=== PATIENT | male | born 1955 ===

== ENCOUNTER 2024-12-06 17:45 | Inpatient (IN) | payer OTHER ==
[~2024-12-06] VITALS: Ht 170.2 cm; Wt 70.1 kg
[2024-12-06 18:05] LABS: DIFFERENTIAL COMMENT 1; EOSINOPHILS # (AUTO) 0.5 K/uL (0.0-0.7); EOSINOPHILS % (AUTO) 10.9 % (0.0-7.0); HEMATOCRIT 32.6 % (36.7-47.1); HEMOGLOBIN 10.9 g/dL (12.5-16.3); LYMPHOCYTES # (AUTO) 1.2 K/uL (0.8-4.8); LYMPHOCYTES % (AUTO) 27.1 % (20.5-51.5); MEAN CORPUSCULAR HEMOGLOBIN 30.1 uug (23.8-33.4); MEAN CORPUSCULAR HGB CONC 34 g/dL (32.5-36.3); MEAN CORPUSCULAR VOLUME 89.8 fL (73.0-96.2); MONOCYTES # (AUTO) 0.4 K/uL (0.1-1.30); MONOCYTES % (AUTO) 8.5 % (0.0-11.0); NEUTROPHILS # (AUTO) 2.4 K/uL (1.8-8.9); NEUTROPHILS % (AUTO) 52.5 % (38.5-71.5); PLATELET COUNT (AUTO) 213 K/uL (152-348); RED BLOOD CELL COUNT(AUTO) 3.63 MIL/uL (4.06-5.63); RED CELL DISTRIBUTION WIDTH 14.3 % (12.1-16.2); WHITE BLOOD COUNT (AUTO) 4.6 K/uL (3.6-10.2)
[2024-12-06] MEDS ORDERED: ASPI81TA31 PO (18:10)
[2024-12-06] MEDS ORDERED: PANT40TA49 PO (18:10)
[2024-12-06] MEDS ORDERED: RANO500T3 PO (18:10)
[2024-12-06] MEDS ORDERED: ISOS30TA9 PO (18:10)
[2024-12-06] MEDS ORDERED: ATOR40TA PO (18:10)
[2024-12-06] MEDS ORDERED: SACU1TAB PO (18:10)
[2024-12-06] MEDS ORDERED: CARV3.122 PO (18:10)
[2024-12-06] MEDS ORDERED: FURO-152 PO (18:10)
[2024-12-06 18:12] LABS: CALCIUM 9.1 mg/dL (8.5-10.1); CARBON DIOXIDE 26 mmol/L (21-32); CHLORIDE 106 mmol/L (98-107); CREATININE 1.5 mg/dL (0.6-1.3); GLUCOSE 113 mg/dL (74-106); POTASSIUM 4.2 mmol/L (3.5-5.1); SODIUM SERUM 140 mmol/L (136-145); UREA NITROGEN, BLOOD 18 mg/dL (7-18)
[2024-12-06] MEDS ORDERED: ONDANSETRON 4 MG/2 ML VIAL ONE (18:18)
[2024-12-06] MEDS ORDERED: MORPHINE SULFATE 4 MG/1 ML DISP.SYRIN ONE ×2 (18:19→20:20)
[2024-12-06] MEDS: ONDANSETRON 4 MG/2 ML VIAL IV ONE (18:19)
[2024-12-06] MEDS: MORPHINE SULFATE 4 MG/1 ML DISP.SYRIN IV ONE ×2 (18:19→20:28)
[2024-12-06 18:25] LABS: ALANINE AMINOTRANSFERASE 12 U/L (16-63); ALBUMIN 3.1 g/dL (3.4-5.0); ALKALINE PHOSPHATASE 98 U/L (50-136); ASPARTATE AMINOTRANSFERASE 15 U/L (15-37); BILIRUBIN,DIRECT 0.1 mg/dL (0.0-0.2); BILIRUBIN,TOTAL 0.4 mg/dL (0.2-1.0); NT-PRO BNP 590 pg/mL (0-125); TOTAL PROTEIN, SERUM 7.3 g/dL (6.4-8.2)
[2024-12-06] MEDS ORDERED: diphenhydrAMINE 50 MG/1 ML VIAL ONE (18:28)
[2024-12-06] MEDS: diphenhydrAMINE 50 MG/1 ML VIAL IV ONE (18:28)
[2024-12-06 23:15] VITALS: BP 95/66; TEMP 97.6; O2SAT 100
[2024-12-06] MEDS ORDERED: ZOLPIDEM 5 MG TABLET PO PRN (23:30)
[2024-12-07] VITALS (7 sets, daily range): BP systolic 90–168; BP diastolic 47–98; TEMP 97.5–98.3; O2SAT 97–100
[2024-12-07] MEDS: MORPHINE SULFATE 2 MG/1 ML DISP.SYRIN IV ONE (00:39)
[2024-12-07] MEDS: LORAZEPAM 2 MG/1 ML VIAL IV PRN (00:55)
[2024-12-07] MEDS ORDERED: ONDANSETRON 4 MG/2 ML VIAL IV PRN (01:00)
[2024-12-07] MEDS: RANOLAZINE 500 MG TAB.ER.12H PO ONE (01:30)
[2024-12-07] MEDS ORDERED: CEFAZOLIN 1 G VIAL ONE (03:52)
[2024-12-07 07:04] LABS: BASOPHILS % (AUTO) 0.9 % (0.0-2.0); EOSINOPHILS # (AUTO) 0.5 K/uL (0.0-0.7); EOSINOPHILS % (AUTO) 10.2 % (0.0-7.0); HEMATOCRIT 32.9 % (36.7-47.1); LYMPHOCYTES # (AUTO) 1.4 K/uL (0.8-4.8); LYMPHOCYTES % (AUTO) 25.7 % (20.5-51.5); MEAN CORPUSCULAR HEMOGLOBIN 29.4 uug (23.8-33.4); MEAN CORPUSCULAR HGB CONC 34 g/dL (32.5-36.3); MONOCYTES # (AUTO) 0.4 K/uL (0.1-1.30); MONOCYTES % (AUTO) 8.2 % (0.0-11.0); NEUTROPHILS # (AUTO) 2.9 K/uL (1.8-8.9); PLATELET COUNT (AUTO) 199 K/uL (152-348); RED BLOOD CELL COUNT(AUTO) 3.74 MIL/uL (4.06-5.63); RED CELL DISTRIBUTION WIDTH 14.2 % (12.1-16.2); WHITE BLOOD COUNT (AUTO) 5.3 K/uL (3.6-10.2)
[2024-12-07 07:16] LABS: DIFFERENTIAL COMMENT 1
[2024-12-07 07:23] LABS: THYROID STIMULATING HORMONE 3.49 mIU/mL (0.358-3.740)
[2024-12-07 07:29] LABS: ALBUMIN 2.9 g/dL (3.4-5.0); BILIRUBIN,TOTAL 0.4 mg/dL (0.2-1.0); CALCIUM 8.8 mg/dL (8.5-10.1); CREATININE 1.4 mg/dL (0.6-1.3); MAGNESIUM 1.5 mg/dL (1.8-2.4); PHOSPHOROUS 4.2 mg/dL (2.5-4.9); POTASSIUM 4.1 mmol/L (3.5-5.1); TOTAL PROTEIN, SERUM 6.9 g/dL (6.4-8.2)
[2024-12-07] MEDS ORDERED: PANTOPRAZOLE SODIUM 40 MG TABLET.DR PO SCH (09:00)
[2024-12-07] MEDS ORDERED: ISOSORBIDE DINITRATE 10 MG TABLET PO SCH ×2 (09:00)
[2024-12-07] MEDS: FUROSEMIDE 20 MG TABLET PO SCH (09:00)
[2024-12-07] MEDS: CLOPIDOGREL 75 MG TABLET PO SCH (09:32)
[2024-12-07] MEDS: ISOSORBIDE MONONITRATE 60 MG TAB.SR.24H PO SCH (09:33)
[2024-12-07] MEDS: RANOLAZINE 500 MG TAB.ER.12H PO SCH (09:33)
[2024-12-07] MEDS: CARVEDILOL 3.125 MG TABLET PO SCH (09:33)
[2024-12-07] MEDS: SACUBITRIL/VALSARTAN 24 MG-26 TABLET PO SCH (09:47)
[2024-12-07] MEDS ORDERED: IV NORMAL SALINE 250 ML IV ONE (11:45)
[2024-12-07] MEDS: IV NORMAL SALINE 250 ML IV ONE ×2 (12:43→22:54)
[2024-12-07] MEDS: MAGNESIUM OXIDE 400 MG TABLET PO ONE (12:43)
[2024-12-07] MEDS: ASPIRIN 81 MG TAB.CHEW PO SCH (18:13)
[2024-12-07] MEDS: ATORVASTATIN 40 MG TABLET PO SCH (20:14)
[2024-12-07] MEDS: DOCUSATE SODIUM 100 MG CAPSULE PO SCH (20:17)
[2024-12-07] MEDS: IV LACTATED RINGERS SOLUTION 1,000 ML IV SCH (23:51)
[2024-12-08] VITALS (8 sets, daily range): BP systolic 80–124; BP diastolic 56–77; TEMP 97.2–98.4; O2SAT 95–99
[2024-12-08] MEDS: PANTOPRAZOLE SODIUM 40 MG TABLET.DR PO SCH (06:26)
[2024-12-08 07:13] LABS: EOSINOPHILS # (AUTO) 0.5 K/uL (0.0-0.7); EOSINOPHILS % (AUTO) 9.9 % (0.0-7.0); HEMATOCRIT 34.6 % (36.7-47.1); HEMOGLOBIN 11.7 g/dL (12.5-16.3); LYMPHOCYTES % (AUTO) 20.4 % (20.5-51.5); MEAN CORPUSCULAR HEMOGLOBIN 29.8 uug (23.8-33.4); MEAN CORPUSCULAR HGB CONC 34 g/dL (32.5-36.3); MEAN CORPUSCULAR VOLUME 88.5 fL (73.0-96.2); MONOCYTES # (AUTO) 1.2 K/uL (0.1-1.30); MONOCYTES % (AUTO) 23.9 % (0.0-11.0); NEUTROPHILS # (AUTO) 2.2 K/uL (1.8-8.9); NEUTROPHILS % (AUTO) 45.8 % (38.5-71.5); PLATELET COUNT (AUTO) 206 K/uL (152-348); RED BLOOD CELL COUNT(AUTO) 3.91 MIL/uL (4.06-5.63); RED CELL DISTRIBUTION WIDTH 14.1 % (12.1-16.2); WHITE BLOOD COUNT (AUTO) 4.9 K/uL (3.6-10.2)
[2024-12-08 07:41] LABS: ALBUMIN 3.1 g/dL (3.4-5.0); BILIRUBIN,DIRECT 0.1 mg/dL (0.0-0.2); BILIRUBIN,TOTAL 0.5 mg/dL (0.2-1.0); CALCIUM 9.4 mg/dL (8.5-10.1); CREATININE 1.4 mg/dL (0.6-1.3); MAGNESIUM 1.7 mg/dL (1.8-2.4); PHOSPHOROUS 3.9 mg/dL (2.5-4.9); POTASSIUM 4.5 mmol/L (3.5-5.1); TOTAL PROTEIN, SERUM 7.3 g/dL (6.4-8.2)
[2024-12-08 07:47] LABS: DIFFERENTIAL COMMENT 1
[2024-12-08] MEDS: RANOLAZINE 500 MG TAB.ER.12H PO SCH (08:59)
[2024-12-08] MEDS: MAGNESIUM OXIDE 400 MG TABLET PO ONE (10:51)
[2024-12-08 11:34] LABS: EOSINOPHILS % (MANUAL) 12 % (0-8); LYMPHOCYTES % (MANUAL) 33 % (20-40); MONOCYTES % (MANUAL) 10 % (2-10); NEUTROPHILS % (MANUAL) 45 % (42-75); PLATELET ESTIMATE ADEQUATE
[2024-12-08] MEDS: IV NORMAL SALINE 250 ML IV ONE (19:15)
[2024-12-09 04:36] VITALS: BP 102/65; TEMP 97.6; O2SAT 99
[2024-12-09 07:02] LABS: CALCIUM 9.4 mg/dL (8.5-10.1); CREATININE 1.6 mg/dL (0.6-1.3); MAGNESIUM 1.8 mg/dL (1.8-2.4); POTASSIUM 4.1 mmol/L (3.5-5.1)
[2024-12-09 08:00] VITALS: BP 90/61; TEMP 98.3; O2SAT 100
[2024-12-09] MEDS: IV NORMAL SALINE 500 ML BAG IV ONE (08:22)
[2024-12-09] MEDS ORDERED: ISOSORBIDE MONONITRATE 60 MG TAB.SR.24H PO SCH (09:00)
[2024-12-09] MEDS: ISOSORBIDE MONONITRATE 30 MG TAB.SR.24H PO SCH (09:00)
[2024-12-09 12:03] VITALS: BP 90/63; TEMP 98.4; O2SAT 99
[2024-12-09 12:07] LABS: PTH, INTACT 13 pg/mL (15-65)
[2024-12-09 15:08] VITALS: BP 108/73; TEMP 98.2; O2SAT 100
[2024-12-09] MEDS: NITROGLYCERIN 0.4 MG/TAB BOTTLE SL PRN (15:08)
[2024-12-09 23:32] VITALS: O2SAT 100
[2024-12-10 04:39] VITALS: BP 110/74; TEMP 97.9; O2SAT 100
[2024-12-10 07:08] LABS: A/G RATIO 0.9 (0.7-1.7); ALBUMIN 3.1 g/dL (2.9-4.4); ALPHA-1-GLOBULIN 0.2 g/dL (0.0-0.4); ALPHA-2-GLOBULIN 0.9 g/dL (0.4-1.0); BETA GLOBULIN 1.1 g/dL (0.7-1.3); GAMMA GLOBULIN 1.3 g/dL (0.4-1.8); GLOBULIN, TOTAL 3.6 g/dL (2.2-3.9); M-SPIKE Not Observed g/dL (Not Observed); PROTEIN, TOTAL 6.7 g/dL (6.0-8.5)
[2024-12-10 07:23] LABS: BASOPHILS # (AUTO) 0.1 K/UL (0.0-0.2); BASOPHILS % (AUTO) 1.2 % (0.0-2.0); EOSINOPHILS # (AUTO) 0.5 K/uL (0.0-0.7); EOSINOPHILS % (AUTO) 9.2 % (0.0-7.0); HEMATOCRIT 36.2 % (36.7-47.1); HEMOGLOBIN 12.3 g/dL (12.5-16.3); LYMPHOCYTES # (AUTO) 1.2 K/uL (0.8-4.8); LYMPHOCYTES % (AUTO) 21.5 % (20.5-51.5); MEAN CORPUSCULAR HEMOGLOBIN 29.7 uug (23.8-33.4); MEAN CORPUSCULAR HGB CONC 34 g/dL (32.5-36.3); MEAN CORPUSCULAR VOLUME 87.2 fL (73.0-96.2); MONOCYTES # (AUTO) 0.5 K/uL (0.1-1.30); MONOCYTES % (AUTO) 8.5 % (0.0-11.0); NEUTROPHILS # (AUTO) 3.4 K/uL (1.8-8.9); NEUTROPHILS % (AUTO) 59.6 % (38.5-71.5); PLATELET COUNT (AUTO) 211 K/uL (152-348); RED BLOOD CELL COUNT(AUTO) 4.15 MIL/uL (4.06-5.63); RED CELL DISTRIBUTION WIDTH 14.6 % (12.1-16.2); WHITE BLOOD COUNT (AUTO) 5.7 K/uL (3.6-10.2)
[2024-12-10 07:37] LABS: DIFFERENTIAL COMMENT 1
[2024-12-10 07:39] VITALS: BP 112/75; TEMP 97.9; O2SAT 100
[2024-12-10 07:55] LABS: CALCIUM 9.1 mg/dL (8.5-10.1); CREATININE 1.4 mg/dL (0.6-1.3); MAGNESIUM 1.8 mg/dL (1.8-2.4); POTASSIUM 4.4 mmol/L (3.5-5.1)
[2024-12-10 09:20] VITALS: O2SAT 100
[2024-12-10 10:56] VITALS: BP 105/74; TEMP 97.6; O2SAT 100
[2024-12-10 16:32] VITALS: BP 101/78; TEMP 98; O2SAT 99
[2024-12-10 20:40] VITALS: BP 105/75; TEMP 98.5; O2SAT 100
[2024-12-11] VITALS (8 sets, daily range): BP systolic 89–137; BP diastolic 61–82; TEMP 97.8–99.5; O2SAT 97–99
[2024-12-11 07:06] LABS: BASOPHILS # (AUTO) 0.1 K/UL (0.0-0.2); BASOPHILS % (AUTO) 1.3 % (0.0-2.0); EOSINOPHILS # (AUTO) 0.6 K/uL (0.0-0.7); EOSINOPHILS % (AUTO) 10.6 % (0.0-7.0); HEMATOCRIT 35.8 % (36.7-47.1); HEMOGLOBIN 12.2 g/dL (12.5-16.3); LYMPHOCYTES # (AUTO) 1.4 K/uL (0.8-4.8); LYMPHOCYTES % (AUTO) 25.5 % (20.5-51.5); MEAN CORPUSCULAR HGB CONC 34 g/dL (32.5-36.3); MEAN CORPUSCULAR VOLUME 87.9 fL (73.0-96.2); MONOCYTES # (AUTO) 0.5 K/uL (0.1-1.30); MONOCYTES % (AUTO) 8.9 % (0.0-11.0); NEUTROPHILS % (AUTO) 53.7 % (38.5-71.5); PLATELET COUNT (AUTO) 237 K/uL (152-348); RED BLOOD CELL COUNT(AUTO) 4.07 MIL/uL (4.06-5.63); RED CELL DISTRIBUTION WIDTH 14.1 % (12.1-16.2); WHITE BLOOD COUNT (AUTO) 5.6 K/uL (3.6-10.2)
[2024-12-11 07:25] LABS: DIFFERENTIAL COMMENT 1
[2024-12-11 07:30] LABS: CALCIUM 9.5 mg/dL (8.5-10.1); CREATININE 1.5 mg/dL (0.6-1.3); POTASSIUM 4.3 mmol/L (3.5-5.1)
[2024-12-11] MEDS: HYDROCODONE/APAP 5-325MG TABLET PO PRN (09:56)
[2024-12-11] MEDS: ACETAMINOPHEN 325 MG TABLET PO PRN (23:32)
[2024-12-12] VITALS (7 sets, daily range): BP systolic 86–110; BP diastolic 59–73; TEMP 97.9–98.7; O2SAT 97–100
[2024-12-12 06:29] LABS: CALCIUM 8.4 mg/dL (8.5-10.1); CREATININE 0.7 mg/dL (0.6-1.3); PHOSPHOROUS 3.6 mg/dL (2.5-4.9)
[2024-12-12 09:16] LABS: BASOPHILS # (AUTO) 0.1 K/UL (0.0-0.2); BASOPHILS % (AUTO) 1.3 % (0.0-2.0); EOSINOPHILS # (AUTO) 0.5 K/uL (0.0-0.7); EOSINOPHILS % (AUTO) 10.7 % (0.0-7.0); HEMATOCRIT 33.2 % (36.7-47.1); HEMOGLOBIN 11.5 g/dL (12.5-16.3); LYMPHOCYTES # (AUTO) 1.1 K/uL (0.8-4.8); LYMPHOCYTES % (AUTO) 24.7 % (20.5-51.5); MEAN CORPUSCULAR HEMOGLOBIN 30.4 uug (23.8-33.4); MEAN CORPUSCULAR HGB CONC 35 g/dL (32.5-36.3); MEAN CORPUSCULAR VOLUME 87.5 fL (73.0-96.2); MONOCYTES # (AUTO) 0.4 K/uL (0.1-1.30); MONOCYTES % (AUTO) 9.5 % (0.0-11.0); NEUTROPHILS # (AUTO) 2.5 K/uL (1.8-8.9); NEUTROPHILS % (AUTO) 53.8 % (38.5-71.5); PLATELET COUNT (AUTO) 223 K/uL (152-348); RED BLOOD CELL COUNT(AUTO) 3.79 MIL/uL (4.06-5.63); RED CELL DISTRIBUTION WIDTH 13.9 % (12.1-16.2); WHITE BLOOD COUNT (AUTO) 4.7 K/uL (3.6-10.2)
[2024-12-13] VITALS (7 sets, daily range): BP systolic 95–118; BP diastolic 65–79; TEMP 98–98.7; O2SAT 97–100
[2024-12-13] MEDS ORDERED: ISOS30TA86 PO (10:12)
[2024-12-13] MEDS ORDERED: CLOP75TA33 PO (10:12)
[2024-12-13] MEDS ORDERED: NITR0.4T48 SL (10:12)
[2024-12-14 00:24] VITALS: BP 101/66; TEMP 98.7; O2SAT 99
[2024-12-14 05:08] VITALS: BP 137/69; TEMP 98.1; O2SAT 96
[2024-12-14 07:41] VITALS: BP 113/73; TEMP 98.4; O2SAT 94
[2024-12-14 11:10] VITALS: BP 128/73; TEMP 98.4; O2SAT 97
[2024-12-14 15:03] VITALS: BP 111/80; TEMP 97.3; O2SAT 99
[2024-12-14 20:52] VITALS: BP 109/79; TEMP 98; O2SAT 99
[2024-12-15 00:05] VITALS: BP 115/73; TEMP 98.6; O2SAT 98
[2024-12-15 04:32] VITALS: BP 96/66; TEMP 97.7; O2SAT 99
[2024-12-15 07:42] VITALS: BP 103/72; TEMP 98.3; O2SAT 99
[2024-12-15 11:29] VITALS: BP 101/72; TEMP 98.5; O2SAT 100
[2024-12-15 15:27] VITALS: BP 104/72; TEMP 98; O2SAT 96
[2024-12-15 19:40] VITALS: BP 104/73; TEMP 98.5; O2SAT 98
[2024-12-16 00:44] VITALS: BP 94/63; TEMP 98.2; O2SAT 97
[2024-12-16 04:04] VITALS: BP 87/60; TEMP 98; O2SAT 97
[2024-12-16 07:37] VITALS: BP 97/68; TEMP 98.2; O2SAT 98
[2024-12-16 10:55] VITALS: BP 112/58; TEMP 98.3; O2SAT 99
[2024-12-16 15:01] VITALS: BP 105/78; TEMP 98.1; O2SAT 96
[2024-12-16 19:00] VITALS: BP 100/65; TEMP 97.8; O2SAT 99
[2024-12-17] VITALS: BP 111/76; TEMP 97.8; O2SAT 97
[2024-12-17 04:00] VITALS: BP 97/69; TEMP 97.7; O2SAT 98
[2024-12-17 07:39] VITALS: BP 128/62; TEMP 98.1; O2SAT 100
[2024-12-17 11:17] VITALS: BP 135/81; TEMP 98.9; O2SAT 99
[2024-12-17 15:02] VITALS: BP_SYST 107; BP_SYST 115; BP_DIAS 64; BP_DIAS 75; TEMP 98.9; O2SAT 99
== END 2024-12-17 18:30 | disposition short-term general hospital (02) | DRG 198 ==
LOC: ER 17:45 → TELE3 22:51 → MEDSURG3 12-10 10:21 → TELE3 12-13 14:10
PROVIDERS: ADMIT Internal Medicine; ATTEND Nurse Practitioner Acute Care
DX: I25.720 Atherosclerosis of autologous artery coronary artery bypass graft(s) with unstable angina pectoris (principal); N17.0 Acute kidney failure with tubular necrosis; I42.9 Cardiomyopathy, unspecified; I85.10 Secondary esophageal varices without bleeding; D63.8 Anemia in other chronic diseases classified elsewhere; K76.6 Portal hypertension; I95.9 Hypotension, unspecified; K74.60 Unspecified cirrhosis of liver; Z95.5 Presence of coronary angioplasty implant and graft; I25.2 Old myocardial infarction; Z95.1 Presence of aortocoronary bypass graft; E83.42 Hypomagnesemia; F10.11 Alcohol abuse, in remission; Z87.891 Personal history of nicotine dependence; E78.5 Hyperlipidemia, unspecified; K21.9 Gastro-esophageal reflux disease without esophagitis; K31.9 Disease of stomach and duodenum, unspecified; Z88.0 Allergy status to penicillin; Z75.1 Person awaiting admission to adequate facility elsewhere; Z79.82 Long term (current) use of aspirin; Z79.899 Other long term (current) drug therapy; I11.0 Hypertensive heart disease with heart failure; I50.22 Chronic systolic (congestive) heart failure; D64.9 Anemia, unspecified; Z82.3 Family history of stroke; Z82.49 Family history of ischemic heart disease and other diseases of the circulatory system
CPT/HCPCS: 36415; 70450; 71045; 76770; 83735; 83970; 84100; 84155; 84165; 84443; 84484; 85025; 85730; 93005; 93307; 93880; A4663; G0378; J0690; J1200; J2060; J2270; J2405; J7040; J7120

== ENCOUNTER 2024-12-23 21:15 | Inpatient (IN) | payer OTHER ==
[~2024-12-23] VITALS: Ht 154.9 cm; Wt 70.9 kg
[~2024-12-23 21:15] MED LIST: ATOR40TA PO; CARV3.122 PO; CLOP75TA33 PO; FURO-152 PO; ISOS30TA86 PO; ISOS30TA9 PO; NITR0.4T48 SL; PANT40TA49 PO; RANO500T3 PO; SACU1TAB PO
[2024-12-23 21:28] VITALS: BP 126/57; TEMP 98.2; O2SAT 99
[2024-12-23] MEDS ORDERED: MECL-159 PO (23:23)
[2024-12-23] MEDS ORDERED: ACET-73 PO (23:23)
[2024-12-23] MEDS ORDERED: DOCU-141 PO (23:23)
[2024-12-23] MEDS ORDERED: ASPI-1420 PO (23:23)
[2024-12-23] MEDS ORDERED: ACET325T53 PO (23:23)
[2024-12-23] MEDS ORDERED: METO-356 PO (23:23)
[2024-12-23] MEDS ORDERED: BISA10SU61 RC (23:23)
[2024-12-23] MEDS ORDERED: ISOS120T13 PO (23:23)
[2024-12-23] MEDS ORDERED: MELA5TAB PO (23:23)
[2024-12-23] MEDS ORDERED: POLY17PO4 PO (23:23)
[2024-12-24 00:10] VITALS: BP 110/47; TEMP 99; O2SAT 98
[2024-12-24 03:59] VITALS: BP 115/65; TEMP 98.3; O2SAT 98
[2024-12-24] MEDS: NITROGLYCERIN 0.4 MG/TAB BOTTLE SL PRN (06:42)
[2024-12-24 07:53] VITALS: BP 103/55; TEMP 97.6; O2SAT 100
[2024-12-24] MEDS ORDERED: CLOPIDOGREL 75 MG TABLET PO SCH (09:00)
[2024-12-24] MEDS: METOPROLOL SUCCINATE XL 25 MG TAB.SR.24H PO SCH (09:00)
[2024-12-24] MEDS: CLOPIDOGREL 75 MG TABLET PO SCH (09:16)
[2024-12-24] MEDS: RANOLAZINE 500 MG TAB.ER.12H PO SCH (09:20)
[2024-12-24] MEDS: ISOSORBIDE MONONITRATE 30 MG TAB.SR.24H PO SCH (09:20)
[2024-12-24 11:44] VITALS: BP 96/59; TEMP 98.1; O2SAT 100
[2024-12-24] MEDS ORDERED: ACETAMINOPHEN 325 MG TABLET PO PRN (13:15)
[2024-12-24] MEDS ORDERED: ACETAMINOPHEN 500 MG TABLET PO PRN (13:15)
[2024-12-24] MEDS ORDERED: MIRALAX 17 GM POWD.PACK PO PRN (13:15)
[2024-12-24] MEDS ORDERED: ACETAMINOPHEN 325 MG TABLET-SA PATIENTS-PAIN ONLY PO PRN (13:15)
[2024-12-24] MEDS ORDERED: DOCUSATE SODIUM 100 MG CAPSULE PO PRN (13:15)
[2024-12-24] MEDS ORDERED: BISACODYL 10 MG SUPP.RECT RC PRN (13:15)
[2024-12-24] MEDS ORDERED: ACETAMINOPHEN ES 500 MG TABLET- SA PATIENTS-PAIN ONLY PO PRN (13:15)
[2024-12-24 16:09] VITALS: BP 96/60; TEMP 98.2; O2SAT 100
[2024-12-24] MEDS ORDERED: ATORVASTATIN 40 MG TABLET PO SCH (18:00)
[2024-12-24 19:00] VITALS: BP 93/66; TEMP 98.8; O2SAT 99
[2024-12-24] MEDS: ATORVASTATIN 40 MG TABLET PO SCH (20:41)
[2024-12-24] MEDS: MECLIZINE HCL 25 MG TABLET PO PRN (23:24)
[2024-12-25] VITALS: BP 102/60; TEMP 98.6; O2SAT 96
[2024-12-25 04:00] VITALS: BP 104/62; TEMP 97.7; O2SAT 98
[2024-12-25] MEDS: PANTOPRAZOLE SODIUM 40 MG TABLET.DR PO SCH (06:22)
[2024-12-25 07:14] LABS: EOSINOPHILS # (AUTO) 0.6 K/uL (0.0-0.7); EOSINOPHILS % (AUTO) 11.5 % (0.0-7.0); HEMATOCRIT 33.7 % (36.7-47.1); HEMOGLOBIN 11.5 g/dL (12.5-16.3); LYMPHOCYTES # (AUTO) 1.3 K/uL (0.8-4.8); LYMPHOCYTES % (AUTO) 25.6 % (20.5-51.5); MEAN CORPUSCULAR HEMOGLOBIN 30.1 uug (23.8-33.4); MEAN CORPUSCULAR HGB CONC 34 g/dL (32.5-36.3); MEAN CORPUSCULAR VOLUME 87.9 fL (73.0-96.2); MONOCYTES # (AUTO) 0.5 K/uL (0.1-1.30); MONOCYTES % (AUTO) 10.7 % (0.0-11.0); NEUTROPHILS # (AUTO) 2.5 K/uL (1.8-8.9); NEUTROPHILS % (AUTO) 51.2 % (38.5-71.5); PLATELET COUNT (AUTO) 212 K/uL (152-348); RED BLOOD CELL COUNT(AUTO) 3.84 MIL/uL (4.06-5.63); RED CELL DISTRIBUTION WIDTH 14.1 % (12.1-16.2); WHITE BLOOD COUNT (AUTO) 4.9 K/uL (3.6-10.2)
[2024-12-25 07:18] LABS: CALCIUM 9.6 mg/dL (8.5-10.1); CREATININE 1.5 mg/dL (0.6-1.3); POTASSIUM 4.2 mmol/L (3.5-5.1)
[2024-12-25 07:38] LABS: DIFFERENTIAL COMMENT 1
[2024-12-25 07:56] VITALS: BP 100/68; TEMP 97.8; O2SAT 100
[2024-12-25 09:00] VITALS: BP 100/68
[2024-12-25] MEDS ORDERED: ASPIRIN EC 81 MG TABLET.DR PO SCH ×2 (09:00)
[2024-12-25] MEDS ORDERED: RANO500T3 PO (09:43)
[2024-12-25] MEDS ORDERED: ATOR40TA PO (09:43)
[2024-12-25] MEDS ORDERED: ISOS30TA86 PO ×2 (09:43→11:52)
[2024-12-25] MEDS ORDERED: NITR0.4T48 SL ×2 (09:43→11:52)
[2024-12-25] MEDS ORDERED: CLOP75TA33 PO (09:43)
[2024-12-25] MEDS ORDERED: METO-356 PO ×2 (09:43→11:52)
[2024-12-25] MEDS ORDERED: MECL-159 PO (11:45)
[2024-12-25] MEDS ORDERED: CLOP75TA15 PO (11:52)
[2024-12-25] MEDS ORDERED: RANO10003 PO (11:52)
[2024-12-25] MEDS ORDERED: ATOR80TA PO (11:52)
== END 2024-12-25 16:20 | disposition home or self-care (01) | DRG 198 ==
LOC: TELE3 21:15
PROVIDERS: ADMIT Internal Medicine; ATTEND Nurse Practitioner Family
DX: I25.119 Atherosclerotic heart disease of native coronary artery with unspecified angina pectoris (principal); N17.0 Acute kidney failure with tubular necrosis; I50.32 Chronic diastolic (congestive) heart failure; I11.0 Hypertensive heart disease with heart failure; I65.8 Occlusion and stenosis of other precerebral arteries; K74.60 Unspecified cirrhosis of liver; Z95.1 Presence of aortocoronary bypass graft; Z95.5 Presence of coronary angioplasty implant and graft; Z88.0 Allergy status to penicillin; K21.9 Gastro-esophageal reflux disease without esophagitis; E78.5 Hyperlipidemia, unspecified
CPT/HCPCS: 36415; 85025; G0378; J8597